=== PATIENT | male | born 1965 | race African-American/Black ===

== ENCOUNTER 2017-01-08 23:21 | Emergency (ER) | payer MEDICAID ==
[~2017-01-08] VITALS: Ht 175.3 cm; Wt 68.0 kg
[~2017-01-08 23:21] MED LIST: FLOMAX0.4 MG ORAL; IBUPROFEN600 MG ORAL; NKM; NORCO 5-325 TA1 EACH ORAL; TOBRAMYCIN5 ML OPHTHALM; UNOBMED; ZOFRAN ODT4 MG ORAL
[2017-01-08 23:46] VITALS: BP 126/70
--- NOTE | 2017-01-09 00:50 | Emergency Room Report ---
History of Present Illness General Chief Complaint: Upper Extremity Injury Source: Patient Present Illness HPI This is a 51 -year-old male who is right-hand dominant. He presents with a splinter in his right hand. He grabbed a piece of wood earlier today and felt a splinter in his, the right hand. He try to get it out but was unsuccessful. Denies any fever or chills he denies any nausea vomiting. Pain is 7/10. No active bleeding. Allergies: Coded Allergies: SHELLFISH DERIVED (Verified Allergy, Severe, 05/19/15) Patient History Past Medical History: see triage record, old chart reviewed Past Surgical History: other Pertinent Family History: none Social History: Denies: smoking Immunizations: UTD Reviewed Nursing Documentation: PMH: Agreed, PSxH: Agreed Nursing Documentation-PMH Hx Hypertension: No Hx Diabetes: No Hx Neurological Problems: Yes - Sciatica Review of Systems Eye: Denies: blurred vision, eye pain ENT: Denies: ear pain, nose congestion, throat swelling Respiratory: Denies: cough, shortness of breath Cardiovascular: Denies: chest pain, palpitations Gastrointestinal: Denies: abdominal pain, diarrhea, nausea, vomiting Musculoskeletal: Denies: back pain, joint pain Skin: Denies: rash Neurological: Denies: headache, numbness Endocrine: Denies: increased thirst, increased urine Hematologic/Lymphatic: Denies: easy bruising All Other Systems: negative except mentioned in HPI Physical Exam Vital Signs Date Time Temp Pulse Resp B/P Pulse Ox O2 Delivery O2 Flow Rate FiO2 01/08/17 23:42 98.2 95 16 126/70 99 Room Air vitals normal. Sp02 EP Interpretation: reviewed, normal General Appearance: well appearing, no apparent distress, alert Head: normocephalic, atraumatic Eyes: bilateral eye EOMI, bilateral eye PERRL ENT: hearing grossly normal, normal pharynx Neck: full range of motion, supple, no meningismus Respiratory: chest non-tender, lungs clear, normal breath sounds Cardiovascular #1: regular rate, rhythm, no murmur Gastrointestinal: normal bowel sounds, non tender, no mass, no organomegaly, no bruit, non-distended Musculoskeletal: back normal, gait/station normal, normal range of motion, other - lac to palm of right hand. no obvious fB but pt said he felt it. Psychiatric: mood/affect normal Skin: warm/dry Procedures Additional Procedure Procedure Narrative Procedure: FB removal Indication: FB Description: Area clean with Betadine. Local anesthetic with 1% lidocaine without epinephrine. I made a small incision with 11 blade scalpel and using a forcep couldn't pull out a sliver of wood. She tolerated procedure without a problem. Bulky dressing placed. Medical Decision Making Diagnostic Impression: Primary Impression: Foreign body in hand Qualified Codes: S60.551A - Superficial foreign body of right hand, initial encounter ER Course Get with a small splinter in the palm of his right hand. No evidence of infection. Increase his for infection since I have to make a small incision to remove it. No tendon laceration. We'll discharge him. Last Vital Signs Date Time Temp Pulse Resp B/P Pulse Ox O2 Delivery O2 Flow Rate FiO2 01/08/17 23:46 98.2 72 16 126/70 99 Room Air Status: improved Disposition: HOME, SELF-CARE Condition: Stable Scripts Cephalexin* (KEFLEX*) 500 Mg Capsule 500 MG ORAL TID, #21 CAP 0 Refills Prov: SHEEBA ROCHA M.D. 01/09/17 Additional Instructions: Followup your DrMauricio in 3-5 days for recheck. Return if worse. SHEEBA ROCHA M.D. Jan 09, 2017 00:50
[2017-01-09] MEDS ORDERED: KEFLEX500 MG ORAL (00:51)
[2017-01-09 01:47] VITALS: BP 129/76
== END 2017-01-09 01:05 | disposition home or self-care (01) ==
LOC: EMR 01-09 00:10
DX: S60.551A Superficial foreign body of right hand, initial encounter (principal); W45.8XXA Other foreign body or object entering through skin, initial encounter; Y92.89 Other specified places as the place of occurrence of the external cause; Z91.013 Allergy to seafood
CPT/HCPCS: 10120; 99284; Z7502

== ENCOUNTER 2017-04-08 16:05 | Emergency (ER) | payer MEDICAID ==
[~2017-04-08] VITALS: Ht 175.3 cm; Wt 67.1 kg
[~2017-04-08 16:05] MED LIST changes: +KEFLEX500 MG ORAL
[2017-04-08 16:16] VITALS: BP 113/71
[2017-04-08] MEDS ORDERED: Methocarbamol 750mg tab ORAL ONE (17:00)
[2017-04-08] MEDS ORDERED: ROBAXIN-750750 MG PO (17:22)
[2017-04-08] MEDS ORDERED: IBUPROFEN600 MG ORAL (17:22)
[2017-04-08 18:03] VITALS: BP 131/80
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
== END 2017-04-08 18:00 | disposition home or self-care (01) ==
LOC: EMR 17:40
DX: S16.1XXA Strain of muscle, fascia and tendon at neck level, initial encounter (principal); Y04.2XXA Assault by strike against or bumped into by another person, initial encounter; Y92.89 Other specified places as the place of occurrence of the external cause; L72.0 Epidermal cyst; Z91.013 Allergy to seafood; M50.322 Other cervical disc degeneration at C5-C6 level; M48.02 Spinal stenosis, cervical region
CPT/HCPCS: 72125; 99284

== ENCOUNTER 2017-04-12 14:57 | Emergency (ER) | payer MEDICAID ==
[~2017-04-12] VITALS: Ht 175.3 cm; Wt 68.0 kg
[~2017-04-12 14:57] MED LIST changes: +ROBAXIN-750750 MG PO
[2017-04-12] MEDS ORDERED: Lidocaine 1% MPF 10mg/ml 5ml IM ONE (15:30)
[2017-04-12] MEDS ORDERED: Azithromycin 250mg tab ORAL ONE (15:30)
[2017-04-12 15:43] LABS: APPEARANCE,URINE CLEAR; KETONES,URINE NEGATIVE (NEGATIVE); LEUKOCYTE ESTERASE ,URINE NEGATIVE (NEGATIVE); NITRITE,URINE NEGATIVE (NEGATIVE); PH,URINE 6 (4.5-8.0); PROTEIN,URINE NEGATIVE (NEGATIVE); UROBILINOGEN,URINE NORMAL MG/DL (0.0-1.0)
[2017-04-12] MEDS ORDERED: BACLOFEN10 MG ORAL (16:06)
[2017-04-12 16:13] VITALS: BP 126/75
--- NOTE | 2017-04-12 16:21 | Emergency Room Report ---
History of Present Illness General Chief Complaint: General Complaint Source: Patient Present Illness HPI The patient is a 52-year-old male presenting for possible STD exposure. He states that his has been complaining of the foul odor and discharge from her vagina. Worse after intercourse. The patient states that he has not had sex with anyone else and he denies any symptoms of STD including fever, chills, abdominal pain, dysuria, hematuria, penile discharge, testicular pain, rash. The patient also states she was unable to fill prescription for Robaxin from previous visits for muscle strain. Allergies: Coded Allergies: SHELLFISH DERIVED (Verified Allergy, Severe, 05/19/15) Patient History Past Medical History: see triage record Pertinent Family History: none Reviewed Nursing Documentation: PMH: Agreed, PSxH: Agreed Nursing Documentation-PMH Hx Hypertension: No Hx Diabetes: No Hx Neurological Problems: Yes - Sciatica Review of Systems All Other Systems: negative except mentioned in HPI Physical Exam Vital Signs Date Time Temp Pulse Resp B/P (MAP) Pulse Ox O2 Delivery O2 Flow Rate FiO2 04/12/17 15:06 98.2 77 22 133/78 98 Room Air Sp02 EP Interpretation: reviewed, normal General Appearance: no apparent distress, alert, GCS 15, non-toxic Head: normocephalic, atraumatic Eyes: bilateral eye normal inspection, bilateral eye PERRL ENT: hearing grossly normal, normal pharynx, no angioedema, normal voice Neck: normal inspection, full range of motion, supple, no bony tend, tender lateral Respiratory: chest non-tender, lungs clear, normal breath sounds, speaking full sentences Gastrointestinal: normal bowel sounds, non tender, soft, non-distended, no guarding, no rebound Rectal: deferred Genitourinary: normal inspection, no CVA tenderness Musculoskeletal: back normal, gait/station normal, normal range of motion, non- tender Neurologic: alert, oriented x3, responsive, motor strength/tone normal, sensory intact, speech normal Psychiatric: judgement/insight normal, memory normal, mood/affect normal, no suicidal/homicidal ideation Skin: normal color, no rash, warm/dry, well hydrated Lymphatic: no adenopathy Medical Decision Making PA Attestation Dr. Gregory is my supervising physician. Patient management was discussed with my supervising physician Diagnostic Impression: Primary Impression: Possible exposure to STD Additional Impression: Muscle strain ER Course The patient is a 52-year-old male presenting for possible STD exposure Differential diagnoses considered but not limited to: Gonorrhea, Chlamydia, herpes, urinary tract infection, among others Physical exam is unremarkable Urinalysis shows no signs of infection Patient is treated with Rocephin and azithromycin as precaution. He agrees with this plan and his will get tested although it sounds as if might have bacterial vaginosis. The patient is also given prescription for baclofen as his Robaxin was not covered for muscle strain. The patient will followup with his primary doctor. ER precautions are given Laboratory Tests Test 04/12/17 15:20 Urine Color Pale yellow Urine Appearance Clear Urine pH 6 (4.5-8.0) Urine Specific [place] 1.005 (1.005-1.035) Urine Protein Negative (NEGATIVE) Urine Glucose (UA) Negative (NEGATIVE) Urine Ketones Negative (NEGATIVE) Urine Occult Blood Negative (NEGATIVE) Urine Nitrite Negative (NEGATIVE) Urine Bilirubin Negative (NEGATIVE) Urine Urobilinogen Normal MG/DL (0.0-1.0) Urine Leukocyte Esterase Negative (NEGATIVE) Lab Results Impression no signs of infection Last Vital Signs Date Time Temp Pulse Resp B/P (MAP) Pulse Ox O2 Delivery O2 Flow Rate FiO2 04/12/17 15:06 98.2 77 22 133/78 98 Room Air Status: improved Disposition: HOME, SELF-CARE Condition: Improved Scripts Baclofen* (BACLOFEN*) 10 Mg Tablet 10 MG ORAL THREE TIMES A DAY, #21 TAB Prov: CELESTE ENG 04/12/17 Patient Instructions: Safe Sex Additional Instructions: Please return to emergency dept if you experience fever, chills, shortness of breath, chest pain, or for any reason. Follow up with primary doctor for further care. CELESTE ENG Apr 12, 2017 16:21
== END 2017-04-12 16:13 | disposition home or self-care (01) ==
LOC: EMR 15:20
DX: Z20.2 Contact with and (suspected) exposure to infections with a predominantly sexual mode of transmission (principal); T14.8 Other injury of unspecified body region; M54.30 Sciatica, unspecified side; Z91.013 Allergy to seafood
CPT/HCPCS: 81003; 96372; 99284; J0696; Q0144

== ENCOUNTER 2017-08-01 11:26 | Emergency (ER) | payer MEDICAID ==
[~2017-08-01] VITALS: Ht 175.3 cm; Wt 68.0 kg
[~2017-08-01 11:26] MED LIST changes: +BACLOFEN10 MG ORAL
[2017-08-01 11:32] VITALS: BP 127/75
[2017-08-01] MEDS ORDERED: Ketorolac 60mg Inj IM ONE (12:15)
[2017-08-01 12:18] LABS: APPEARANCE,URINE CLEAR; BILIRUBIN, URINE NEGATIVE (NEGATIVE); COLOR,URINE PALE YELLOW; GLUCOSE, URINE (UA) NEGATIVE (NEGATIVE); KETONES,URINE NEGATIVE (NEGATIVE); LEUKOCYTE ESTERASE ,URINE NEGATIVE (NEGATIVE); NITRITE,URINE NEGATIVE (NEGATIVE); PH,URINE 7 (4.5-8.0); PROTEIN,URINE NEGATIVE (NEGATIVE); UROBILINOGEN,URINE NORMAL MG/DL (0.0-1.0)
[2017-08-01] MEDS ORDERED: Dicyclomine HCl 10mg/5ml oral soln ORAL ONE (13:15)
[2017-08-01] MEDS ORDERED: TAMSULOSIN HCL0.4 MG ORAL (13:32)
[2017-08-01] MEDS ORDERED: AMBIEN10 M1 ORAL (13:32)
[2017-08-01] MEDS ORDERED: NAPROXEN375 MG ORAL (13:32)
[2017-08-01] MEDS ORDERED: LEVOFLOXACIN500 MG ORAL (13:37)
--- NOTE | 2017-08-01 13:53 | Diagnostic Imaging Report ---
Indication: Left flank pain Technique: CT of the abdomen and pelvis utilizing automated exposure control without intravenous or oral contrast. CT dose: Total DLP 526.71 mGycm; CTDI vol 10.85 mGy Comparison: None Findings: Please note that evaluation of the abdominal and pelvic viscera is limited without the use of intravenous and oral contrast. Within these limitations, the following observations are made: There is question of smooth mild septal thickening in the imaged lower lungs. This may suggest fluid overload/hypervolemia. Heart size within normal limits. No pericardial effusion. In the left lobe of the liver there is a 1.2 cm well-circumscribed low-attenuation lesion with density measurements lateral with a simple hepatic cyst. Noncontrast evaluation of the liver is otherwise unremarkable. Gallbladder is unremarkable. Noncontrast evaluation of the spleen, pancreas and adrenal glands is grossly unremarkable. There is mild asymmetric fullness of the left renal collecting system compared to the right. Asymmetric prominence of the left ureter compared to the right. No definite urinary tract stone is noted bilaterally. No evidence of hydronephrosis on the right. Question bifid renal pelvis on the left. No significant left-sided perinephric stranding. The bladder wall is thickened. Prostate appears borderline enlarged. There is no evidence of bowel obstruction. No free intraperitoneal air or fluid. Appendix is normal. Atherosclerotic vascular calcifications are noted in a normal caliber abdominal aorta. There is a prominent vascular structure adjacent to the left kidney which may represent a prominent prominent varix, possibly austin-systemic. This structure seems to originate from the left lower pelvis vein courses superiorly along the posterior lateral aspect of the abdomen and seems to connect with venous structures in the region of the splenic hilum. No acute osseous abnormality is seen. Impression: Limited evaluation without contrast. Within these limitations: Mild asymmetric fullness of the left renal collecting system and left ureter when compared to the right. No urinary tract stone identified bilaterally. Findings may possibly be related to recently passed stone. Mild thickening of the bladder wall. Correlate with clinical history/physical exam and urinalysis. Questionable smooth septal thickening noted in the lower lungs possibly related to hypervolemia/fluid overload. Prominent vascular structure coursing coursing from the pelvis up along the posterior lateral left abdomen, behind the left kidney and seemingly into venous structures in the region of the right hilum. This may represent prominent portosystemic varices of uncertain etiology or clinical significance. Consider contrast-enhanced exam for better evaluation as clinically indicated. The CT scanner at is accredited by the [employer] and the scans are performed using protocols designed to limit radiation exposure to as low as reasonably achievable to attain images of sufficient resolution adequate for diagnostic evaluation.
[2017-08-01 14:01] VITALS: BP 127/75
--- NOTE | 2017-08-05 07:40 | Emergency Room Report ---
History of Present Illness General Chief Complaint: Pain Present Illness HPI Patient is a 51-year-old male who presented after increased low back pain. Patient reports having prior history of pain to his low back which radiated to his left leg. He denied recent trauma. Patient reports having some numbness to the left buttock. He denies any motor weakness. Patient had increased pain with ambulation. He denied any changes with seated position. Patient reports having no change in the pain with lateral flexion and rotation. Allergies: Coded Allergies: SHELLFISH DERIVED (Verified Allergy, Severe, 05/19/15) Patient History Past Medical History: see triage record Reviewed Nursing Documentation: PMH: Agreed, PSxH: Agreed Nursing Documentation-PMH Hx Hypertension: No Hx Diabetes: No Hx Neurological Problems: Yes - Sciatica Review of Systems All Other Systems: negative except mentioned in HPI Physical Exam Vital Signs Date Time Temp Pulse Resp B/P (MAP) Pulse Ox O2 Delivery O2 Flow Rate FiO2 08/01/17 11:32 98.8 85 20 127/75 97 Room Air Sp02 EP Interpretation: reviewed, normal General Appearance: normal inspection, well appearing, no apparent distress, alert, GCS 15 Head: atraumatic ENT: normal ENT inspection, hearing grossly normal, normal voice Neck: normal inspection, full range of motion, supple, no bony tend Respiratory: normal inspection, lungs clear, normal breath sounds, no respiratory distress, no retraction, no wheezing Cardiovascular #1: regular rate, rhythm, no edema Gastrointestinal: normal inspection, normal bowel sounds, non tender, soft, no guarding, no hernia Genitourinary: no CVA tenderness Musculoskeletal: normal inspection, back normal, normal range of motion Neurologic: normal inspection, alert, oriented x3, responsive, agricultural science professor III-XII nml as tested, speech normal Psychiatric: normal inspection, judgement/insight normal, mood/affect normal Skin: normal inspection, normal color, no rash Medical Decision Making Diagnostic Impression: Primary Impression: BPH (benign prostatic hyperplasia) Additional Impressions: Subcutaneous cyst Sciatica Colitis ER Course Patient presented for back pain. Differential diagnosis included but was not limited to herniated disc, cauda equina syndrome, abdominal aortic aneurysm, perforated ulcer, spinal epidural abscess, spinal stenosis, lumbar fracture, metastatic lesion, pyelonephritis. Because of complexity of patient's case imaging studies were ordered.Patient was given prescription for medications for prostatic hypertrophy as well for cyst. CT abdomen pelvis read by radiology showed no evidence of acute fracture or malalignment. The patient is advised to follow up with primary care doctor in 1-2 days. Patient is advised to return if any worsening condition or if any changes in status that are concerning. This report is dictated with [employer] car audio installer software which may occasionally lead to discrepancies related to use of this software. Labs Test 08/01/17 11:40 Urine Color Pale yellow Urine Appearance Clear Urine pH 7 (4.5-8.0) Urine Specific [place] 1.010 (1.005-1.035) Urine Protein Negative (NEGATIVE) Urine Glucose (UA) Negative (NEGATIVE) Urine Ketones Negative (NEGATIVE) Urine Occult Blood Negative (NEGATIVE) Urine Nitrite Negative (NEGATIVE) Urine Bilirubin Negative (NEGATIVE) Urine Urobilinogen Normal MG/DL (0.0-1.0) Urine Leukocyte Esterase Negative (NEGATIVE) Urine Opiates Screen Negative (NEGATIVE) Urine Barbiturates Screen Negative (NEGATIVE) Phencyclidine (PCP) Screen Negative (NEGATIVE) Urine Amphetamines Screen Negative (NEGATIVE) Urine Benzodiazepines Screen Negative (NEGATIVE) Urine Cocaine Screen Negative (NEGATIVE) Urine Marijuana (THC) Screen Positive (NEGATIVE) Last Vital Signs Date Time Temp Pulse Resp B/P (MAP) Pulse Ox O2 Delivery O2 Flow Rate FiO2 08/01/17 14:01 98.8 85 20 127/75 97 Room Air Status: improved Disposition: HOME, SELF-CARE Condition: Stable Scripts Levofloxacin (LEVOFLOXACIN*) 500 Mg Tablet 500 MG ORAL DAILY, #7 TAB Prov: Leandro Gregory 08/01/17 Naproxen* (NAPROSYN*) 375 Mg Tablet 375 MG ORAL TWICE A DAY, #14 TAB 0 Refills Prov: Leandro Gregory 08/01/17 Zolpidem Tartrate* (AMBIEN*) 10 Mg Tablet 10 MG ORAL HS Y for Insomnia, #7 TAB Prov: Leandro Gregory 08/01/17 Tamsulosin Hcl (TAMSULOSIN HCL*) 0.4 Mg Cap.er.24h 0.4 MG ORAL BEDTIME, #14 CAP Prov: Leandro Gregory 08/01/17 Referrals: NOT CHOSEN IPA/MD,REFERRING (PCP) Patient Instructions: Benign Prostatic Hypertrophy, Colitis Leandro Gregory Aug 05, 2017 07:40
== END 2017-08-01 14:01 | disposition home or self-care (01) ==
LOC: EMR 12:14
DX: N40.0 Benign prostatic hyperplasia without lower urinary tract symptoms (principal); M54.42 Lumbago with sciatica, left side; K52.9 Noninfective gastroenteritis and colitis, unspecified; Z91.013 Allergy to seafood
CPT/HCPCS: 74176; 80307; 81003; 96372; 99284

== ENCOUNTER 2018-08-08 08:59 | Emergency (ER) | payer MEDICAID, OTHER ==
[~2018-08-08] VITALS: Ht 175.3 cm; Wt 70.3 kg
[~2018-08-08 08:59] MED LIST changes: +AMBIEN10 M1 ORAL; +LEVOFLOXACIN500 MG ORAL; +NAPROXEN375 MG ORAL; +TAMSULOSIN HCL0.4 MG ORAL
--- NOTE | 2018-08-08 09:16 | NUR ---
ED Nurse Note: patient came into ED ambulating, c/o left back pain, per pt, it does not radiate to anywhere else, it started last week, last night it got worse.
[2018-08-08 09:18] VITALS: BP 112/70
--- NOTE | 2018-08-08 09:20 | NUR ---
ED Nurse Note: patient denies any injury, he stated that the pain started all of a sudden
[2018-08-08] MEDS ORDERED: Ketorolac 60mg Inj IM ONE (09:30)
[2018-08-08 09:40] LABS: APPEARANCE,URINE CLEAR; BILIRUBIN, URINE NEGATIVE (NEGATIVE); COLOR,URINE PALE YELLOW; GLUCOSE, URINE (UA) NEGATIVE (NEGATIVE); KETONES,URINE NEGATIVE (NEGATIVE); LEUKOCYTE ESTERASE ,URINE NEGATIVE (NEGATIVE); NITRITE,URINE NEGATIVE (NEGATIVE); PH,URINE 7 (4.5-8.0); PROTEIN,URINE NEGATIVE (NEGATIVE); UROBILINOGEN,URINE NORMAL MG/DL (0.0-1.0)
--- NOTE | 2018-08-08 10:13 | Emergency Room Report ---
History of Present Illness General Chief Complaint: Back Pain-No Injury Source: Patient Present Illness HPI This patient has a history of degenerative disc disease and sciatica. He states that he used to get epidural injections. He states that he has multiple lumbar and cervical disc herniations. He states he had been advised to undergo surgery. He states that he had not had many problems for quite some time. He states that for the past week he has had an aggravation of his back pain. He states the pain does radiate to his left leg. He states that the pain is severe and worse with movement. He states that he has been debilitated for the past few days. He denies weakness. He denies tingling or numbness. He denies loss of bowel or bladder control. He has no other complaints. Allergies: Coded Allergies: SHELLFISH DERIVED (Verified Allergy, Severe, 05/19/15) Patient History Past Medical History: see triage record, other - DDD, sciatica Social History: Denies: smoking, alcohol use, drug use Reviewed Nursing Documentation: PMH: Agreed; PSxH: Agreed Nursing Documentation-PMH Past Medical History: No History, Except For Hx Hypertension: No Hx Diabetes: No Hx Neurological Problems: Yes - Sciatica Review of Systems All Other Systems: negative except mentioned in HPI Physical Exam Vital Signs Date Time Temp Pulse Resp B/P (MAP) Pulse Ox O2 Delivery O2 Flow Rate FiO2 08/08/18 09:08 98.4 64 18 112/70 98 Room Air Sp02 EP Interpretation: reviewed, normal General Appearance: no apparent distress, alert, GCS 15, non-toxic Head: normocephalic, atraumatic Eyes: bilateral eye normal inspection, bilateral eye PERRL ENT: hearing grossly normal, no angioedema, normal voice Neck: full range of motion, supple/symm/no masses Respiratory: no respiratory distress, no retraction, no accessory muscle use, speaking full sentences Cardiovascular #1: no edema Rectal: deferred Musculoskeletal: back normal, normal range of motion, other - Pain w/ movement. No TTP in musculature. Neurologic: alert, oriented x3, responsive, motor strength/tone normal, sensory intact, speech normal Psychiatric: judgement/insight normal, memory normal, mood/affect normal, no suicidal/homicidal ideation Skin: normal color, no rash, warm/dry, well hydrated Medical Decision Making Diagnostic Impression: Primary Impression: Sciatica Additional Impression: Lumbar radiculopathy ER Course This patient has a clinical presentation consistent with mechanical back pain/ sciatica/radiculopathy. There are no red flags on physical exam. The patient denies any concerning features such as trauma, fevers, night sweats, history of malignancy, pain worse at night, IV drug abuse, urinary/fecal incontinence or retention, focal weakness or change in sensation, or refractory pain. Given these pertinent negatives in the history and physical exam an emergent cause of the back pain such as epidural abscess, metastasis to bone, cauda equina syndrome, and fracture is less likely. I also doubt emergent cardiovascular cause of back pain such as aortic dissection a ruptured abdominal aortic aneurysm given patient with equal pulses in all 4 extremities with no diastolic murmur or pulsatile abdominal mass. The patient was counseled that, though unlikely, the possibility of an emergent cause of back pain may still be present and that the patient should return immediately if symptoms persist or worsen. The symptoms are reproducible with movement. Patient had a benign evaluation and neurologic examination. No emergency etiology was identified. Laboratory Tests Test 08/08/18 09:30 Urine Color Pale yellow Urine Appearance Clear Urine pH 7 (4.5-8.0) Urine Specific [place] 1.005 (1.005-1.035) Urine Protein Negative (NEGATIVE) Urine Glucose (UA) Negative (NEGATIVE) Urine Ketones Negative (NEGATIVE) Urine Blood Negative (NEGATIVE) Urine Nitrite Negative (NEGATIVE) Urine Bilirubin Negative (NEGATIVE) Urine Urobilinogen Normal MG/DL (0.0-1.0) Urine Leukocyte Esterase Negative (NEGATIVE) Urine Opiates Screen Negative (NEGATIVE) Urine Barbiturates Screen Negative (NEGATIVE) Phencyclidine (PCP) Screen Negative (NEGATIVE) Urine Amphetamines Screen Negative (NEGATIVE) Urine Benzodiazepines Screen Negative (NEGATIVE) Urine Cocaine Screen Negative (NEGATIVE) Urine Marijuana (THC) Screen Negative (NEGATIVE) Last Vital Signs Date Time Temp Pulse Resp B/P (MAP) Pulse Ox O2 Delivery O2 Flow Rate FiO2 08/08/18 09:18 98.4 64 18 112/70 98 Room Air Status: improved Disposition: HOME, SELF-CARE Condition: Improved Referrals: [facility],REFERRING (PCP) Patient Instructions: Shelly Singleton DO Aug 08, 2018 10:13
[2018-08-08] MEDS ORDERED: TRAMADOL HCL50 MG ORAL (10:17)
[2018-08-08] MEDS ORDERED: CYCLOBENZAPRINE10 MG ORAL (10:17)
[2018-08-08] MEDS ORDERED: PREDNISONE20 MG ORAL (10:17)
[2018-08-08] MEDS ORDERED: IBUPROFEN800 MG ORAL (10:17)
[2018-08-08] MEDS ORDERED: LIDODERM700 M1 TOPIC (10:17)
[2018-08-08 10:38] VITALS: BP 112/70
--- NOTE | 2018-08-08 10:39 | NUR ---
ED Nurse Note: Patient is being discharged, cleared by ERMD Dr. Gould. Discharge instructions/paper/prescription given, explained, patient verbalized understanding, received signature on the paper. ID band removed. Patient ambulated out of ED with steady gait with all belongings.
== END 2018-08-08 10:37 | disposition home or self-care (01) ==
LOC: EMR 09:50
DX: M54.30 Sciatica, unspecified side (principal); M54.16 Radiculopathy, lumbar region; Z91.013 Allergy to seafood
CPT/HCPCS: 80307; 81003; 96372; 99283

== ENCOUNTER 2018-10-06 16:56 | Emergency (ER) | payer OTHER ==
[~2018-10-06] VITALS: Ht 175.3 cm; Wt 70.3 kg
[~2018-10-06 16:56] MED LIST changes: +CYCLOBENZAPRINE10 MG ORAL; +IBUPROFEN800 MG ORAL; +LIDODERM700 M1 TOPIC; +PREDNISONE20 MG ORAL; +TRAMADOL HCL50 MG ORAL
[2018-10-06 17:12] VITALS: BP 114/72
--- NOTE | 2018-10-06 17:27 | NUR ---
ED Nurse Note: urine sample sent.
[2018-10-06] MEDS ORDERED: Lidocaine 1% MPF 10mg/ml 5ml INJ ONE (17:45)
[2018-10-06 17:51] LABS: APPEARANCE,URINE CLEAR; BILIRUBIN, URINE NEGATIVE (NEGATIVE); COLOR,URINE PALE YELLOW; GLUCOSE, URINE (UA) NEGATIVE (NEGATIVE); KETONES,URINE NEGATIVE (NEGATIVE); LEUKOCYTE ESTERASE ,URINE NEGATIVE (NEGATIVE); NITRITE,URINE NEGATIVE (NEGATIVE); PH,URINE 5 (4.5-8.0); PROTEIN,URINE NEGATIVE (NEGATIVE); UROBILINOGEN,URINE NORMAL MG/DL (0.0-1.0)
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
[2018-10-06] MEDS ORDERED: AZITHROMYCIN500 MG ORAL (17:56)
[2018-10-06 18:05] VITALS: BP 114/72
--- NOTE | 2018-10-06 18:06 | NUR ---
ER DISCHARGE NOTE: Patient is cleared to be discharged per ERMD, pt is aox4, on room air, with stable vital signs. pt was given dc and prescription instructions, pt was able to verbalize understanding, pt id band removed. pt is able to ambulate with steady gait. pt took all belongings.
== END 2018-10-06 18:05 | disposition home or self-care (01) ==
LOC: EMR 17:32
DX: N40.0 Benign prostatic hyperplasia without lower urinary tract symptoms (principal); N41.0 Acute prostatitis; M54.30 Sciatica, unspecified side; Z91.013 Allergy to seafood
CPT/HCPCS: 81003; 96372; 99283; J0696

== ENCOUNTER 2019-05-01 22:13 | Emergency (ER) | payer OTHER ==
[~2019-05-01] VITALS: Ht 175.3 cm; Wt 69.4 kg
[~2019-05-01 22:13] MED LIST changes: +AZITHROMYCIN500 MG ORAL
[2019-05-01] MEDS ORDERED: ROBAXIN-750750 MG PO (23:15)
[2019-05-01] MEDS ORDERED: MEDROL DOSEPAK4 MG ORAL (23:15)
[2019-05-01] MEDS ORDERED: Ketorolac 60mg Inj IM ONE (23:15)
[2019-05-01 23:25] VITALS: BP 116/75
--- NOTE | 2019-05-02 01:07 | Emergency Room Report ---
History of Present Illness General Chief Complaint: Back Pain-No Injury Source: Patient Present Illness HPI Patient presents with complaints of low back pain reports that he has had similar back pain for 15 years reports that off-and-on every 4 to 5 months he has exacerbation of the pain He has seen back specialist in the past and also has had epidurals Patient reports that he does not want to have surgery and has been told that his symptoms will continue to worsen Denies any fevers or chills denies any recent trauma denies any saddle paresthesia Pain is worse with bending and turning better with rest Allergies: Coded Allergies: SHELLFISH DERIVED (Verified Allergy, Severe, 05/19/15) Patient History Past Medical History: see triage record Reviewed Nursing Documentation: PMH: Agreed; PSxH: Agreed Nursing Documentation-PMH Past Medical History: No Stated History Hx Hypertension: No Hx Diabetes: No Hx Neurological Problems: Yes - Sciatica Review of Systems All Other Systems: negative except mentioned in HPI Physical Exam Vital Signs Date Time Temp Pulse Resp B/P (MAP) Pulse Ox O2 Delivery O2 Flow Rate FiO2 05/01/19 22:29 98.4 70 14 116/75 (89) 100 Room Air Sp02 EP Interpretation: reviewed, normal General Appearance: well appearing, no apparent distress Head: normocephalic, atraumatic Eyes: bilateral eye PERRL, bilateral eye EOMI ENT: normal pharynx Neck: supple Respiratory: lungs clear, no respiratory distress, no retraction Cardiovascular #1: regular rate, rhythm Gastrointestinal: non tender, soft Genitourinary: no CVA tenderness Musculoskeletal: other - Some discomfort on palpation of the right posterior superior iliac crest, no midline step-offs patient ambulatory Neurologic: alert, oriented x3, responsive Skin: no rash Medical Decision Making Diagnostic Impression: Primary Impression: Back pain ER Course Given the patient's history and presentation multiple differentials are in consideration including but not limited to neurological , Neurosurgical musculoskeletal pathology patient has a benign medical evaluation I do not see any obvious signs of emergent presentation patient was treated for pain symptoms And requires close outpatient follow-up Last Vital Signs Date Time Temp Pulse Resp B/P (MAP) Pulse Ox O2 Delivery O2 Flow Rate FiO2 05/01/19 23:25 98.4 14 116/75 100 Room Air 05/01/19 22:29 70 Status: improved Disposition: HOME, SELF-CARE Condition: Improved Scripts Methocarbamol* (ROBAXIN-750*) 750 Mg Tablet 750 MG PO TID, #21 TAB 0 Refills Prov: Godwin Yo DO 05/01/19 Methylprednisolone (Methylprednisolone*) 4MG Dspk 4 MG ORAL DIRECTED for 6 Days, #21 EA 0 Refills Day 1: Two tablets before breakfast, one after lunch, one after dinner, and two at bedtime. If started late in the day, take all six tablets at once or divide into two or three doses, unless otherwise directed by prescriber. Day 2: One tablet before breakfast, one after lunch, one after dinner, and two at bedtime Day 3: One tablet before breakfast, one after lunch, one after dinner, and one at bedtime Day 4: One tablet before breakfast, one after lunch, and one at bedtime Day 5: One tablet before breakfast and one at bedtime Day 6: One tablet before breakfast Prov: Godwin Yo DO 05/01/19 Referrals: NON PHYSICIAN (PCP) [facility] Harley Dhaliwal [facility] Psych ER - Peds ER - [facility] Patient Instructions: Back Pain, Adult Additional Instructions: Patient is provided with the discharge instructions notified to follow up with primary doctor in the next 2-3 days otherwise return to the er with any worsening symptoms. Please note that this report is being documented using [employer] technology. This can lead to erroneous entry secondary to incorrect interpretation by the dictating instrument. Godwin Yo DO May 02, 2019 01:07
== END 2019-05-01 23:55 | disposition home or self-care (01) ==
LOC: EMR 23:35
DX: M54.5 Low back pain (principal); Z91.013 Allergy to seafood
CPT/HCPCS: 96372; Z7502; 99283

== ENCOUNTER 2019-06-13 14:32 | Emergency (ER) | payer OTHER ==
[~2019-06-13] VITALS: Ht 175.3 cm; Wt 69.4 kg
[~2019-06-13 14:32] MED LIST changes: +MEDROL DOSEPAK4 MG ORAL
--- NOTE | 2019-06-13 15:00 | NUR ---
ED Nurse Note: Pt aaox4, vss, no acute distress. PT C/O L GROIN AND SCROTAL PAIN THAT RADIATES TO ALL QUADRANTS ABD PAIN FOR A WEEK NOW, DENIES N/V BUT STATED HAVING SOME WEAKNESS. AFEBRILE. Pt states nick is 7/10. No skin issues noted.
[2019-06-13 15:07] VITALS: BP 139/94
[2019-06-13] MEDS ORDERED: Ketorolac 30mg Inj IV ONE (15:15)
--- NOTE | 2019-06-13 15:20 | NUR ---
ED Nurse Note: US with pt
[2019-06-13 15:50] LABS: BASOPHILS % (AUTO) 1.1 % (0.0-2.0); EOSINOPHILS % (AUTO) 2.2 % (0.0-3.0); HEMATOCRIT 43.2 % (42.0-52.0); HEMOGLOBIN 15.1 G/DL (14.2-18.0); LYMPHOCYTES % (AUTO) 30.5 % (20.0-45.0); MEAN CORPUSCULAR VOLUME 85 FL (80-99); MONOCYTES % (AUTO) 9.7 % (1.0-10.0); NEUTROPHILS % (AUTO) 56.5 % (45.0-75.0); PLATELET COUNT 193 K/UL (150-450); RED BLOOD COUNT 5.08 M/UL (4.70-6.10); RED CELL DISTRIBUTION WIDTH 11.1 % (11.6-14.8); WHITE BLOOD COUNT 7.1 K/UL (4.8-10.8)
[2019-06-13 15:53] LABS: ANION GAP 8 mmol/L (5-15); BLOOD UREA NITROGEN 16 mg/dL (7-18); CALCIUM 8.3 MG/DL (8.5-10.1); CARBON DIOXIDE 30 MMOL/L (21-32); CHLORIDE 106 MMOL/L (98-107); POTASSIUM 3.6 MMOL/L (3.5-5.1); SODIUM 143 MMOL/L (136-145)
[2019-06-13 15:58] LABS: ALANINE AMINOTRANSFERASE 35 U/L (12-78); ALBUMIN 3.8 G/DL (3.4-5.0); ALBUMIN/GLOBULIN RATIO 1.3 (1.0-2.7); ALKALINE PHOSPHATASE 76 U/L (46-116); ASPARTATE AMINO TRANSFERASE 28 U/L (15-37); BILIRUBIN,TOTAL 0.4 MG/DL (0.2-1.0)
--- NOTE | 2019-06-13 16:00 | NUR ---
ED Nurse Note: Urine sent to lab
--- NOTE | 2019-06-13 16:02 | Diagnostic Imaging Report ---
Indications: Scrotal pain Technique: Grayscale and duplex images of the scrotum Comparison: Findings:The right testicle measures 3.5cm in length. It demonstrates normal echogenicity. Normal Doppler flow. Normal epididymis. There is a small cyst in the posterior testicle. This measures 5 mm in diameter.. There is a minimal right hydrocele The left testicle measures 3.7 cm in length. It demonstrates normal echogenicity and normal Doppler flow. Normal epididymis. There is a sizable varicocele. The testicle demonstrates a 3 mm cyst Impression: No acute abnormality. No evidence of testicular torsion Large left varicocele Small right hydrocele Small bilateral testicular cysts
[2019-06-13 16:29] LABS: APPEARANCE,URINE CLEAR; BILIRUBIN, URINE NEGATIVE (NEGATIVE); COLOR,URINE PALE YELLOW; GLUCOSE, URINE (UA) NEGATIVE (NEGATIVE); KETONES,URINE NEGATIVE (NEGATIVE); LEUKOCYTE ESTERASE ,URINE NEGATIVE (NEGATIVE); NITRITE,URINE NEGATIVE (NEGATIVE); PH,URINE 6 (4.5-8.0); PROTEIN,URINE NEGATIVE (NEGATIVE); UROBILINOGEN,URINE NORMAL MG/DL (0.0-1.0)
[2019-06-13] MEDS ORDERED: IBUPROFEN600 MG ORAL (16:34)
[2019-06-13 16:38] VITALS: BP 140/83
--- NOTE | 2019-06-13 17:34 | Emergency Room Report ---
History of Present Illness General Chief Complaint: Abdominal Pain Source: Patient Present Illness HPI 54-year-old male presents ED for evaluation. Complaining of scrotal pain for the last few days. Dull, 8 out of 10, radiating to lower abdomen. Denies nausea or vomiting. Denies any discharge. Denies fevers or chills. History of BPH. Denies dysuria. No other aggravating relieving factors. Denies any other associated symptoms Allergies: Coded Allergies: SHELLFISH DERIVED (Verified Allergy, Severe, 05/19/15) Patient History Past Medical History: other - BPH Past Surgical History: none Pertinent Family History: none Social History: Denies: smoking, alcohol use, drug use Immunizations: UTD Reviewed Nursing Documentation: PMH: Agreed; PSxH: Agreed Nursing Documentation-PMH Past Medical History: No History, Except For Hx Cardiac Problems: No - BPH Hx Hypertension: No Hx Diabetes: No Hx Neurological Problems: Yes - Sciatica Review of Systems All Other Systems: negative except mentioned in HPI Physical Exam Vital Signs Date Time Temp Pulse Resp B/P (MAP) Pulse Ox O2 Delivery O2 Flow Rate FiO2 06/13/19 14:57 98.4 88 19 147/90 (109) 100 Room Air Sp02 EP Interpretation: reviewed, normal General Appearance: no apparent distress, alert, GCS 15, non-toxic Head: normocephalic Eyes: bilateral eye normal inspection, bilateral eye PERRL ENT: normal ENT inspection Neck: normal inspection Respiratory: normal inspection Cardiovascular #1: normal inspection Gastrointestinal: normal bowel sounds, non tender, soft, non-distended, no guarding, no rebound Rectal: deferred Genitourinary: other - scrotal tenderness Musculoskeletal: back normal, normal range of motion, gait/station normal, non- tender Neurologic: alert, motor strength/tone normal, oriented x3, sensory intact, responsive, speech normal Psychiatric: normal inspection Skin: no rash Lymphatic: normal inspection Medical Decision Making Diagnostic Impression: Primary Impression: Varicocele Additional Impression: Hydrocele Qualified Codes: N43.3 - Hydrocele, unspecified ER Course Hospital Course 54 yo M presents to ED c/o testciular pain, nausea Differential diagnoses include: hydrocele, varicocele, epididymitis, testicular torsion Clinical course Patient placed on stretcher. After initial history and physical I ordered labs and scrotal ultrasound. labs unremarkable US large left varicocele, small right hydrocele. good flow to both testes. no torsion I discussed findings with patient. Will discharge to home. Given copy of ultrasound results. States he has a urologist because of BPH. Diagnosis - varicocele, hydrocele Stable and discharged to home with prescription for Motrin. Followup with PMD. Return to ED if symptoms recur or worsen Labs Test 06/13/19 15:17 06/13/19 16:15 White Blood Count 7.1 K/UL (4.8-10.8) Red Blood Count 5.08 M/UL (4.70-6.10) Hemoglobin 15.1 G/DL (14.2-18.0) Hematocrit 43.2 % (42.0-52.0) Mean Corpuscular Volume 85 FL (80-99) Mean Corpuscular Hemoglobin 29.7 PG (27.0-31.0) Mean Corpuscular Hemoglobin Concent 34.9 G/DL (32.0-36.0) Red Cell Distribution Width 11.1 % (11.6-14.8) Platelet Count 193 K/UL (150-450) Mean Platelet Volume 7.9 FL (6.5-10.1) Neutrophils (%) (Auto) 56.5 % (45.0-75.0) Lymphocytes (%) (Auto) 30.5 % (20.0-45.0) Monocytes (%) (Auto) 9.7 % (1.0-10.0) Eosinophils (%) (Auto) 2.2 % (0.0-3.0) Basophils (%) (Auto) 1.1 % (0.0-2.0) Sodium Level 143 MMOL/L (136-145) Potassium Level 3.6 MMOL/L (3.5-5.1) Chloride Level 106 MMOL/L (98-107) Carbon Dioxide Level 30 MMOL/L (21-32) Anion Gap 8 mmol/L (5-15) Blood Urea Nitrogen 16 mg/dL (7-18) Creatinine 1.0 MG/DL (0.55-1.30) Estimat Glomerular Filtration Rate > 60 mL/min (>60) Glucose Level 118 MG/DL (74-106) Calcium Level 8.3 MG/DL (8.5-10.1) Total Bilirubin 0.4 MG/DL (0.2-1.0) Aspartate Amino Transf (AST/SGOT) 28 U/L (15-37) Alanine Aminotransferase (ALT/SGPT) 35 U/L (12-78) Alkaline Phosphatase 76 U/L (46-116) Total Protein 6.7 G/DL (6.4-8.2) Albumin 3.8 G/DL (3.4-5.0) Globulin 2.9 g/dL Albumin/Globulin Ratio 1.3 (1.0-2.7) Lipase 321 U/L (73-393) Urine Color Pale yellow Urine Appearance Clear Urine pH 6 (4.5-8.0) Urine Specific [place] 1.015 (1.005-1.035) Urine Protein Negative (NEGATIVE) Urine Glucose (UA) Negative (NEGATIVE) Urine Ketones Negative (NEGATIVE) Urine Blood 2+ (NEGATIVE) Urine Nitrite Negative (NEGATIVE) Urine Bilirubin Negative (NEGATIVE) Urine Urobilinogen Normal MG/DL (0.0-1.0) Urine Leukocyte Esterase Negative (NEGATIVE) Urine RBC 0-2 /HPF (0 - 0) Urine WBC 0-2 /HPF (0 - 0) Urine Squamous Epithelial Cells None /LPF (NONE/OCC) Urine Bacteria Occasional /HPF (NONE) CT/MRI/US Diagnostic Results CT/MRI/US Diagnostic Results : Imaging Test Ordered: Scrotal US Impression Findings:The right testicle measures 3.5cm in length. It demonstrates normal echogenicity. Normal Doppler flow. Normal epididymis. There is a small cyst in the posterior testicle. This measures 5 mm in diameter.. There is a minimal right hydrocele The left testicle measures 3.7 cm in length. It demonstrates normal echogenicity and normal Doppler flow. Normal epididymis. There is a sizable varicocele. The testicle demonstrates a 3 mm cyst Last Vital Signs Date Time Temp Pulse Resp B/P (MAP) Pulse Ox O2 Delivery O2 Flow Rate FiO2 06/13/19 16:38 98.6 19 140/83 100 Room Air 06/13/19 15:07 88 Status: improved Disposition: HOME, SELF-CARE Condition: Stable Scripts Ibuprofen* (MOTRIN*) 600 Mg Tablet 600 MG ORAL Q8H PRN for For Pain, #30 TAB 0 Refills Prov: Yimi Garcia MD 06/13/19 Referrals: NON PHYSICIAN (PCP) Patient Instructions: Hydrocele, Adult, Varicocele Yimi Garcia MD Jun 13, 2019 17:34
== END 2019-06-13 16:38 | disposition home or self-care (01) ==
LOC: EMR 15:15
DX: I86.1 Scrotal varices (principal); N43.3 Hydrocele, unspecified; M54.30 Sciatica, unspecified side; Z91.013 Allergy to seafood
CPT/HCPCS: 36415; 76870; 80053; 81003; 83690; 85025; 96374; J1885; Z7502; 99284

== ENCOUNTER 2019-08-23 10:45 | Emergency (ER) | payer SELFPAY ==
[~2019-08-23] VITALS: Ht 175.3 cm; Wt 70.3 kg
[~2019-08-23 10:45] MED LIST changes: +FLONASE ALLERG9.9 ML NS; +GUAIFENESIN DM118 M1 ORAL; +PROMETHAZINE-D118 ML ORAL; +TAMIFLU75 MG ORAL; +TIGER BALM PAT1 EAC1 TP; +TYLENOL EXTRA500 MG ORAL
--- NOTE | 2019-08-23 10:55 | NUR ---
ED Nurse Note: pt walked in to ed c/o productive cough s2likuv. pt states [place] [facility] [place] ago with same complaint but was not able to fill his rx. pt does not present with fever, denies n/v/d. temp 97.9 at triage. yuliya sainz. ermd at bedside. will continue to monitor patient.
[2019-08-23 11:07] VITALS: BP 121/66
--- NOTE | 2019-08-23 11:26 | NUR ---
ED Nurse Note: xr at bedside
--- NOTE | 2019-08-23 11:58 | Diagnostic Imaging Report ---
EXAM: XR Chest, 1 View CLINICAL HISTORY: Shortness of breath TECHNIQUE: Frontal view of the chest. COMPARISON: No relevant prior studies available. FINDINGS: Lungs: Unremarkable. The lungs appear clear. No focal consolidation. Pleural space: Unremarkable. The costophrenic angles are sharp. No visible pneumothorax. Heart: Unremarkable. No cardiomegaly. Mediastinum: Unremarkable. Bones/joints: Unremarkable. IMPRESSION: No acute findings.
[2019-08-23] MEDS ORDERED: GUAIFENESI100 MG/5 M ORAL (13:03)
[2019-08-23] MEDS ORDERED: ZITHROMAX250 MG ORAL (13:03)
[2019-08-23 13:15] VITALS: BP 133/61
--- NOTE | 2019-08-23 13:56 | NUR ---
ER DISCHARGE NOTE: Patient is cleared to be discharged per ERMD, pt is aox4, on room air, with stable vital signs. pt was given dc and prescription instructions, pt was able to verbalize understanding, pt id band removed without complications. pt is able to ambulate with steady gait. pt took all belongings.
--- NOTE | 2019-08-24 08:04 | Emergency Room Report ---
History of Present Illness General Chief Complaint: Upper Respiratory Illness Source: Patient Present Illness HPI Patient is a 54-year-old male who presents after increased cough and difficulty with breathing. Patient reportedly had not felt his medications and had several ER visits in the past few weeks. He denies any diarrhea but reports having some nausea. Had not been any fever. Intermittent episodes of nonproductive cough. Denies any vomiting or diarrhea Allergies: Coded Allergies: SHELLFISH DERIVED (Verified Allergy, Severe, 05/19/15) Patient History Past Medical History: see triage record Reviewed Nursing Documentation: PMH: Agreed; PSxH: Agreed Nursing Documentation-PMH Hx Cardiac Problems: No Hx Hypertension: No Hx Pacemaker: No Hx Asthma: No Hx COPD: No Hx Diabetes: No Hx Cancer: No - BPH Hx Gastrointestinal Problems: No Hx Dialysis: No Hx Neurological Problems: Yes - Sciatica Hx Cerebrovascular Accident: No Hx Seizures: No Review of Systems All Other Systems: negative except mentioned in HPI Physical Exam Vital Signs Date Time Temp Pulse Resp B/P (MAP) Pulse Ox O2 Delivery O2 Flow Rate FiO2 08/23/19 10:52 97.9 70 15 111/68 (82) 99 Room Air General Appearance: well appearing, no apparent distress, alert, GCS 15 Head: normocephalic, atraumatic ENT: hearing grossly normal, normal voice Neck: full range of motion, supple Respiratory: lungs clear, normal breath sounds, no respiratory distress, speaking full sentences Cardiovascular #1: normal inspection, no edema Gastrointestinal: normal inspection Musculoskeletal: normal inspection, no calf tenderness Neurologic: alert, motor strength/tone normal, data warehousing engineer III-XII nml as tested, oriented x3, normal gait Psychiatric: normal inspection, mood/affect normal Skin: no rash Medical Decision Making Diagnostic Impression: Primary Impression: Upper respiratory infection Additional Impression: Upper respiratory symptom ER Course Patient presented for persistent cough. Differential diagnosis include was not limited to pneumonia, bronchitis, viral respiratory infection among others. Chest x-ray was ordered due to patient's persistent cough. Chest x-ray 1 view read by radiology showed no evidence of acute infiltrate. Patient was given breathing treatment as well as oral Zofran. Appears to be stable for outpatient management. The patient is advised to follow up with primary care doctor in 1-2 days. Patient is advised to return if any worsening condition or if any changes in status that are concerning. This report is dictated with [employer] conditioning yard supervisor software which may occasionally lead to discrepancies related to use of this software. Last Vital Signs Date Time Temp Pulse Resp B/P (MAP) Pulse Ox O2 Delivery O2 Flow Rate FiO2 08/23/19 13:15 97.8 69 18 133/61 98 Room Air Status: improved Disposition: HOME, SELF-CARE Condition: Stable Scripts Guaifenesin* (GUAIFENESIN*) 100 Mg/5 Ml Liquid 5 ML ORAL Q8H, #120 ML 0 Refills Prov: Angelique Drake 08/23/19 Azithromycin* (ZITHROMAX*) 250 Mg Tablet 250 MG ORAL DAILY, #6 TAB 0 Refills Take two tables once daily for 1 day, then one tablet once daily for 4 days. Prov: Angelique Drake 08/23/19 Referrals: NOT CHOSEN IPA/,REFERRING (PCP) Patient Instructions: Upper Respiratory Infection, Adult Leandro Gregory MD Aug 24, 2019 08:04
[2019-08-24] MEDS ORDERED: CAPSAICIN42.5 GM TP (11:59)
== END 2019-08-23 13:15 | disposition home or self-care (01) ==
LOC: EMR 11:30
DX: J06.9 Acute upper respiratory infection, unspecified (principal); Z91.013 Allergy to seafood
CPT/HCPCS: 71045; 93005; 99283

== ENCOUNTER 2019-08-24 09:30 | Emergency (ER) | payer SELFPAY ==
[~2019-08-24] VITALS: Ht 175.3 cm; Wt 70.3 kg
[~2019-08-24 09:30] MED LIST changes: +GUAIFENESI100 MG/5 M ORAL; +ZITHROMAX250 MG ORAL
--- NOTE | 2019-08-24 09:45 | NUR ---
ED Nurse Note: Patient came to ED from home c/o sweating in the AM when he woke up. Patient states he has felt weak and has had intermittent sweating for 2 weeks. Patient was seen here in the ED for the same s/s twice in the last week. Patient AxO x 4 no s/s of acute distress.
--- NOTE | 2019-08-24 09:49 | Emergency Room Report ---
History of Present Illness General Chief Complaint: General Complaint Source: Patient, Medical Record Present Illness HPI Patient is a 54-year-old male presents after increased generalized pain as well as nausea and vomiting. Reports having increased nonproductive cough for several weeks. Multiple recent ER visits. He denies any vomiting but does report having increased difficulty with breathing. This is been ongoing for several weeks. Continues to have cough. Denies any diarrhea. Allergies: Coded Allergies: SHELLFISH DERIVED (Verified Allergy, Severe, 05/19/15) Patient History Past Medical History: see triage record Reviewed Nursing Documentation: PMH: Agreed; PSxH: Agreed Nursing Documentation-PMH Hx Cardiac Problems: No Hx Hypertension: No Hx Pacemaker: No Hx Asthma: No Hx COPD: No Hx Diabetes: No Hx Cancer: No - BPH Hx Gastrointestinal Problems: No Hx Dialysis: No Hx Neurological Problems: Yes - Sciatica Hx Cerebrovascular Accident: No Hx Seizures: No Review of Systems All Other Systems: negative except mentioned in HPI Physical Exam Vital Signs Date Time Temp Pulse Resp B/P (MAP) Pulse Ox O2 Delivery O2 Flow Rate FiO2 08/24/19 09:38 98.1 69 18 140/80 (100) 96 Room Air Sp02 EP Interpretation: reviewed, normal General Appearance: normal inspection, well appearing, no apparent distress, alert, GCS 15 Head: atraumatic ENT: normal ENT inspection, hearing grossly normal, normal voice Neck: normal inspection, full range of motion, supple, no bony tend Respiratory: normal inspection, lungs clear, normal breath sounds, no respiratory distress, no retraction, no wheezing Cardiovascular #1: regular rate, rhythm, no edema Gastrointestinal: normal inspection, normal bowel sounds, non tender, soft, no guarding, no hernia Genitourinary: no CVA tenderness Musculoskeletal: normal inspection, back normal, normal range of motion Neurologic: alert, calender supervisor III-XII nml as tested, oriented x3, responsive, speech normal, normal inspection Psychiatric: normal inspection, judgement/insight normal, mood/affect normal Medical Decision Making Diagnostic Impression: Primary Impression: Vomiting and diarrhea ER Course Patient presented for generalized weakness and nausea.. Differential diagnosis includes not limited to marijuana hyperemesis, Pneumonia, bronchitis, viral gastroenteritis, myocardial infarction among others. Because of complexity of patient's case laboratory tests and imaging studies were ordered. Patient has had multiple recent emergency department visits. Had recent negative chest x- ray in the emergency department yesterday. Patient states that he does smoke marijuana daily and may have some component of marijuana hyperemesis which is causing his symptoms. Patient was advised to discontinue marijuana use. He was given IV fluids patient was able to tolerate oral fluids as well as p.o. food. He was advised marijuana cessation. He was given a prescription for capsaicin cream. He is advised to follow-up with his primary care physician for further work-up. Last Vital Signs Date Time Temp Pulse Resp B/P (MAP) Pulse Ox O2 Delivery O2 Flow Rate FiO2 08/24/19 09:38 98.1 69 18 140/80 (100) 96 Room Air Status: improved Disposition: HOME, SELF-CARE Condition: Stable Scripts Capsaicin (CAPSAICIN) 42.5 Gm Cream..g. 42.5 GM TP ONCE, #42.5 GM Prov: Leandro Gregory MD 08/24/19 Leandro Gregory MD Aug 24, 2019 09:49
--- NOTE | 2019-08-24 10:00 | NUR ---
ED Nurse Note: 20 g IV started in left AC. Blood and urine sent to lab.
--- NOTE | 2019-08-24 10:25 | NUR ---
ED Nurse Note: Accucheck done, BG is 95.
[2019-08-24 10:27] VITALS: BP 140/80
[2019-08-24 10:29] LABS: APPEARANCE,URINE CLEAR; BASOPHILS % (AUTO) 0.4 % (0.0-2.0); BILIRUBIN, URINE NEGATIVE (NEGATIVE); COLOR,URINE PALE YELLOW; EOSINOPHILS % (AUTO) 0.3 % (0.0-3.0); GLUCOSE, URINE (UA) NEGATIVE (NEGATIVE); HEMATOCRIT 52.3 % (42.0-52.0); KETONES,URINE NEGATIVE (NEGATIVE); LEUKOCYTE ESTERASE ,URINE NEGATIVE (NEGATIVE); LYMPHOCYTES % (AUTO) 20.3 % (20.0-45.0); MEAN CORPUSCULAR VOLUME 87 FL (80-99); MONOCYTES % (AUTO) 7.7 % (1.0-10.0); NEUTROPHILS % (AUTO) 71.3 % (45.0-75.0); NITRITE,URINE NEGATIVE (NEGATIVE); PH,URINE 6 (4.5-8.0); PLATELET COUNT 178 K/UL (150-450); PROTEIN,URINE NEGATIVE (NEGATIVE); RED BLOOD COUNT 6.03 M/UL (4.70-6.10); RED CELL DISTRIBUTION WIDTH 11.3 % (11.6-14.8); UROBILINOGEN,URINE NORMAL MG/DL (0.0-1.0); WHITE BLOOD COUNT 9.4 K/UL (4.8-10.8)
[2019-08-24 10:30] LABS: HEMOGLOBIN 18.1 G/DL (14.2-18.0)
[2019-08-24 10:43] LABS: ANION GAP 7 mmol/L (5-15); BLOOD UREA NITROGEN 16 mg/dL (7-18); CALCIUM 9.2 MG/DL (8.5-10.1); CARBON DIOXIDE 31 MMOL/L (21-32); CHLORIDE 105 MMOL/L (98-107); SODIUM 143 MMOL/L (136-145)
[2019-08-24 10:55] LABS: ALANINE AMINOTRANSFERASE 43 U/L (12-78); ALBUMIN 4.4 G/DL (3.4-5.0); ALBUMIN/GLOBULIN RATIO 1.1 (1.0-2.7); ALKALINE PHOSPHATASE 113 U/L (46-116); ASPARTATE AMINO TRANSFERASE 33 U/L (15-37); BILIRUBIN,TOTAL 0.8 MG/DL (0.2-1.0)
[2019-08-24] MEDS ORDERED: CAPSAICIN42.5 GM TP (11:59)
[2019-08-24 12:04] VITALS: BP 138/79
--- NOTE | 2019-08-24 12:04 | NUR ---
ER DISCHARGE NOTE: Patient cleared for DC by Dr. Gregory. Patient AxO x 4, no s/s of acute distress. VSS. Patient verbalized understanding of DC instructions. IV and ID band removed, patient walks with steady gait, all belongings with patient.
== END 2019-08-24 12:04 | disposition home or self-care (01) ==
LOC: EMR 10:54
DX: R11.10 Vomiting, unspecified (principal); R19.7 Diarrhea, unspecified; F12.90 Cannabis use, unspecified, uncomplicated; N40.0 Benign prostatic hyperplasia without lower urinary tract symptoms; M54.30 Sciatica, unspecified side; Z91.013 Allergy to seafood
CPT/HCPCS: 36415; 80053; 80307; 81001; 82962; 83880; 84443; 84484; 85025; 93005; 96361; 96374; 99284; J2405; J7030

== ENCOUNTER 2019-08-30 17:51 | Emergency (ER) | payer SELFPAY ==
[~2019-08-30] VITALS: Ht 175.3 cm; Wt 71.2 kg
[~2019-08-30 17:51] MED LIST changes: +CAPSAICIN42.5 GM TP
[2019-08-30 18:30] VITALS: BP 109/80
--- NOTE | 2019-08-30 18:30 | NUR ---
ED Nurse Note: Pt walked into ED w/ c/o frequent urination for 2 weeks. Pt state he has history of BPH. Pt is alert and orientedx4, ambulatory. Pt states he has urinary pain 10/10 while urinating. Pt has burning sensation.
--- NOTE | 2019-08-30 18:30 | NUR ---
Note angusdesi in EDM - 08/30/19 at 1921 by HARRIS ED Nurse Note: Pt walked into ED w/ c/o frequent urination for 2 weeks. Pt state he has history of BPH. Pt is alert and orientedx4, ambulatory. Pt states he has no urinary pain while urinating. Pt denies burning sensation.
[2019-08-30 18:50] LABS: APPEARANCE,URINE CLEAR; BILIRUBIN, URINE NEGATIVE (NEGATIVE); COLOR,URINE PALE YELLOW; GLUCOSE, URINE (UA) NEGATIVE (NEGATIVE); KETONES,URINE NEGATIVE (NEGATIVE); LEUKOCYTE ESTERASE ,URINE NEGATIVE (NEGATIVE); NITRITE,URINE NEGATIVE (NEGATIVE); PH,URINE 7 (4.5-8.0); PROTEIN,URINE NEGATIVE (NEGATIVE); UROBILINOGEN,URINE NORMAL MG/DL (0.0-1.0)
--- NOTE | 2019-08-30 19:29 | NUR ---
ED Nurse Note: Received report from KATHRIN Neal.
--- NOTE | 2019-08-30 19:32 | Emergency Room Report ---
History of Present Illness General Chief Complaint: Male Urogenital Problems Source: Patient Present Illness HPI 54-year-old male presents to the emergency department complaining of urinary frequency, hematuria and intermittent pain with urination x 1 week. Patient denies penile discharge or suspicion of STI. Patient with history of BPH and is supposed to be on Flomax however he states he does not believe in Western medicine and is not taking his Flomax he is trying herbal supplements. Patient denies history of diabetes he states he has generalized body aches and overall feeling of not being well. Patient reports multiple visits to different ERs the last few days. Patient states he did follow-up with his urologist 2 days ago and had biopsy performed on his prostate and was told that it was normal. Patient states he has been having night sweats times weeks. Patient denies fevers, chills, low back pain, constipation or diarrhea. He denies abdominal pain or tenderness, nausea or vomiting no other aggravating or relieving factors at this time. Denies rashes. Allergies: Coded Allergies: SHELLFISH DERIVED (Verified Allergy, Severe, 05/19/15) Patient History Past Medical History: see triage record Past Surgical History: none Pertinent Family History: none Reviewed Nursing Documentation: PMH: Agreed; PSxH: Agreed Nursing Documentation-PMH Past Medical History: No History, Except For Hx Cardiac Problems: No Hx Hypertension: No Hx Pacemaker: No Hx Asthma: No Hx COPD: No Hx Diabetes: No Hx Cancer: No - BPH Hx Gastrointestinal Problems: No Hx Dialysis: No Hx Neurological Problems: Yes - Sciatica Hx Cerebrovascular Accident: No Hx Seizures: No Review of Systems All Other Systems: negative except mentioned in HPI Physical Exam Vital Signs Date Time Temp Pulse Resp B/P (MAP) Pulse Ox O2 Delivery O2 Flow Rate FiO2 08/30/19 17:53 98.8 88 19 130/88 (102) 97 Room Air Sp02 EP Interpretation: reviewed, normal General Appearance: no apparent distress, alert, GCS 15, non-toxic Head: normocephalic, atraumatic Eyes: bilateral eye normal inspection, bilateral eye PERRL ENT: hearing grossly normal, normal voice Neck: full range of motion Respiratory: lungs clear, normal breath sounds, speaking full sentences Cardiovascular #1: regular rate, rhythm Gastrointestinal: non tender, soft Genitourinary: normal inspection, no CVA tenderness Musculoskeletal: normal range of motion, gait/station normal, non-tender Neurologic: alert, motor strength/tone normal, oriented x3, sensory intact, responsive, speech normal Psychiatric: judgement/insight normal, anxious - overly anxious about health conditions and wanting infectious disease testing. Skin: normal color Medical Decision Making PA Attestation Dr. Gregory is my supervising Physician whom patient management has been discussed with. Diagnostic Impression: Primary Impression: Benign prostatic hyperplasia with urinary frequency ER Course 54-year-old male presents to the emergency department complaining of urinary frequency, hematuria and intermittent pain with urination x 1 week. Patient denies penile discharge or suspicion of STI. Patient with history of BPH and is supposed to be on Flomax however he states he does not believe in Western medicine and is not taking his Flomax he is trying herbal supplements. Patient denies history of diabetes he states he has generalized body aches and overall feeling of not being well. Patient reports multiple visits to different ERs the last few days. Patient states he did follow-up with his urologist 2 days ago and had biopsy performed on his prostate and was told that it was normal. Patient states he has been having night sweats times weeks. Patient denies fevers, chills, low back pain, constipation or diarrhea. He denies abdominal pain or tenderness, nausea or vomiting no other aggravating or relieving factors at this time. Denies rashes. Ddx considered but are not limited to UTi , BPH, DM, Urethritis, LGV, STI, Stone, Cystitis, prostatitis Vital signs: are WNL, pt. is afebrile H&PE are most consistent with urinary frequency in a non-compliant pt. ORDERS: - UA : WNL-- no evidence of infection, no increased glucose or ketones. ED INTERVENTIONS: - I discussed with this patient that I am unable to find an acute emergent condition at this time and that for continued evaluation of his symptoms and ultimately a definitive diagnosis he needs to follow-up with primary care and urology specialty. I discussed with patient that I highly recommend he continue his previously prescribed Flomax. -I do not identify an emergent condition at this time. With current presentation , pt. is stable for close outpatient follow up and conservative treatment. D/ w pt. to return promptly to ED with worsening or new symptoms.- Pt. verbalizes' understanding and agreement with proposed treatment plan, He left the ED in an upset fashion. DISCHARGE: At this time pt. is stable for d/c to home. Will provide printed patient care instructions, and any necessary prescriptions. Care plan and follow up instructions have been discussed with the patient prior to discharge. Labs Test 08/30/19 18:00 Urine Color Pale yellow Urine Appearance Clear Urine pH 7 (4.5-8.0) Urine Specific [place] 1.010 (1.005-1.035) Urine Protein Negative (NEGATIVE) Urine Glucose (UA) Negative (NEGATIVE) Urine Ketones Negative (NEGATIVE) Urine Blood Negative (NEGATIVE) Urine Nitrite Negative (NEGATIVE) Urine Bilirubin Negative (NEGATIVE) Urine Urobilinogen Normal MG/DL (0.0-1.0) Urine Leukocyte Esterase Negative (NEGATIVE) Urine RBC 0-2 /HPF (0 - 0) Urine WBC 0 /HPF (0 - 0) Urine Squamous Epithelial Cells None /LPF (NONE/OCC) Urine Bacteria None /HPF (NONE) Last Vital Signs Date Time Temp Pulse Resp B/P (MAP) Pulse Ox O2 Delivery O2 Flow Rate FiO2 08/30/19 18:30 98.6 79 19 109/80 96 Room Air Disposition: HOME, SELF-CARE Condition: Stable Referrals: NOT CHOSEN IPA/MD,REFERRING (PCP) Patient Instructions: Medical Screening Exam, Urinary Frequency Additional Instructions: Take medications as directed. Follow up with a Primary Care Provider in 3-5 days For a referral to have UROLOGIST Evaluation, even if your symptoms have resolved. --Please review list of primary care clinics, if you do not already have a primary care provider Return sooner to ED if new symptoms occur, or current symptoms become worse. - Please note that this Emergency Department Report was dictated using [employer] instrumentation supervisor technology software, occasionally this can lead to erroneous entry secondary to interpretation by the dictation equipment. Neena Bland Aug 30, 2019 19:32
[2019-08-30 19:50] VITALS: BP 112/82
--- NOTE | 2019-08-30 19:50 | NUR ---
ER DISCHARGE NOTE: Patient is cleared to be discharged per ERMD, pt is aox4, on room air, with stable vital signs. pt was given dc and prescription instructions, pt was able to verbalize understanding, pt id band removed. pt is able to ambulate with steady gait. pt took all belongings. pt stable upon discharge.
== END 2019-08-30 19:50 | disposition home or self-care (01) ==
LOC: EMR 18:20
DX: N40.1 Benign prostatic hyperplasia with lower urinary tract symptoms (principal); R35.0 Frequency of micturition; Z91.013 Allergy to seafood
CPT/HCPCS: 81001; 99283